=== PATIENT | male | born 1995 | race Caucasian/White ===

== ENCOUNTER 2019-02-28 08:27 | Emergency (ER) | payer MEDICAID ==
[~2019-02-28] VITALS: Ht 175.3 cm; Wt 61.4 kg
[~2019-02-28 08:27] MED LIST: IBUP-1985 PO
[2019-02-28 08:35] VITALS: BP 153/91
== END 2019-02-28 09:28 | disposition home or self-care (01) ==
LOC: ER 08:27
DX: R07.81 Pleurodynia (principal); F12.90 Cannabis use, unspecified, uncomplicated; Z79.899 Other long term (current) drug therapy
CPT/HCPCS: 99284

== ENCOUNTER 2020-10-25 19:53 | Emergency (ER) | payer MEDICAID ==
[~2020-10-25] VITALS: Ht 170.2 cm; Wt 63.6 kg
--- NOTE | 2020-10-25 20:20 | NUR ---
Contacted poison control, magaly beauchamp pt could experience anticholinergic delirium and recommends ekg to monitor qrs. Will notify EDP.
[2020-10-25 20:36] LABS: BASOPHILS % (AUTO) 0.4 % (0-1); EOSINOPHILS # (AUTO) 0.1 X10'3 (0-0.9); EOSINOPHILS % (AUTO) 0.7 % (0-6); HEMATOCRIT 40.4 % (42.0-52.0); HEMOGLOBIN 13.6 g/dl (14.0-17.9); LYMPHOCYTES # (AUTO) 1.4 X10'3 (1.1-4.8); LYMPHOCYTES % (AUTO) 18.2 % (21-51); MEAN CORPUSCULAR HEMOGLOBIN 30.6 PG (27.0-31.0); MEAN CORPUSCULAR HGB CONC 33.5 g/dL (33.0-36.5); MEAN CORPUSCULAR VOLUME 91.3 FL (78-98); MEAN PLATELET VOLUME 8.1 FL (7.4-10.4); MONOCYTES # (AUTO) 0.5 X10'3 (0-0.9); MONOCYTES % (AUTO) 5.7 % (2-12); NEUTROPHILS # (AUTO) 5.9 X10'3 (1.8-7.7); PLATELET COUNT 201 X10'3 (140-440); RED BLOOD COUNT 4.43 X10'6 (4.70-6.10); RED CELL DISTRIBUTION WIDTH 12.7 % (11.5-14.5); WHITE BLOOD COUNT 7.9 X10'3 (4.5-11.0)
[2020-10-25 20:50] LABS: ALANINE AMINOTRANSFERASE 23 U/L (12-78); ALBUMIN 4.2 G/DL (3.4-5.0); ALBUMIN/GLOBULIN RATIO 1.1 (1.1-1.5); ALKALINE PHOSPHATASE 57 IU/L (46-116); ANION GAP 14 (8-16); ASPARTATE AMINO TRANSFERASE 20 U/L (10-37); BILIRUBIN,TOTAL 0.3 MG/DL (0.1-1.0); BLOOD UREA NITROGEN 6 MG/DL (7-18); BUN/CREATININE RATIO 6.1 (5.4-32.0); CALCIUM 8.1 MG/DL (8.5-10.1); CHLORIDE 108 MMOL/L (99-107); CREATININE 0.98 MG/DL (0.60-1.10); ETHANOL 0.076 GM/DL (0.0-0.010); GLUCOSE 92 MG/DL (70-104); POTASSIUM 3.3 MMOL/L (3.5-5.1); SODIUM 146 MMOL/L (135-145); TOTAL CARBON DIOXIDE 24.2 MMOL/L (24-32); TOTAL PROTEIN 7.9 G/DL (6.4-8.2); eGFR > 90 ML/MIN
[2020-10-25 20:53] LABS: ACETAMINOPHEN < 2.0 UG/ML (10-30)
[2020-10-25] MEDS ORDERED: normal saline 1000ML IV soln IVB ONE (20:55)
[2020-10-25 21:16] LABS: URINE AMPHETAMINE SCREEN NEGATIVE (Neg); URINE BARBITUATE SCREEN NEGATIVE (Neg); URINE BENZODIAZEPINES SCREEN NEGATIVE (Neg); URINE CANNABINOID SCREEN POSITIVE (Neg); URINE COCAINE SCREEN NEGATIVE (Neg); URINE METHADONE SCREEN NEGATIVE (Neg); URINE OPIATE SCREEN NEGATIVE (Neg); URINE PHENCYCLIDINE SCREEN NEGATIVE (Neg)
--- NOTE | 2020-10-25 21:34 | NUR ---
ASSUMING CARE OF PT FROM TIMUR SEGURA. PT IS UNABLE TO FOLLOW DIRECTIONS AND IS SOMEWHAT REDIRECTABLE. STATES HE NEEDS TO PEE. ASSISTED TO STAND, UNSTEADY GAIT BUT IS MOVING AROUND ROOM WITH SBA, HOWEVER HE IS A FALL RISK. OFFERED URIINAL AND UNABLE TO USE IS TRYING STATING HE WILL "USE THIS" POINTING TO THE LAUNDRY BIN. HE IS TALKING BIZZARE AND NOT MAKING SENSE. SECURITY AND MALE CONTAINER CRANE OPERATOR AT BEDSIDE TO ASSIST PT INTO HIS GREEN SCRUBS. NOW SITTING ON THE BED.
--- NOTE | 2020-10-25 22:00 | NUR ---
Security in hallway for safety
--- NOTE | 2020-10-25 22:42 | NUR ---
DR. SHER AT BEDSIDE EARLIER WHEN PT BECOMMING UNDIRECTABLE AND TRYING TO GET OOB REGULARLY AND HR 130. SHE REPROTS SHE DOES NOT WANT TO CHEMICALLY RESTRAIN HIM AT THIS TIME AND THAT SHE WANT A SITTER AND NOT TO RESTRAIN HIM YET. PT HAS BEEN ABLE TO KEEP IN HIS BED WITH SECURITY AND RN AT BEDSIDE AAT REMINDING HIM.
--- NOTE | 2020-10-25 23:04 | NUR ---
PTS SISTER, SHIRA HERNODN, , CALLED TO GIVE AN UPDATE ON THE EVENTS THAT HAVE HAPPENED TODAY. HE HAD SENT TEXTS THAT SUGGESTED TO HER THAT "HE DOES NOT WANT TO BE ALIVE ANYMORE". SHE STATES HE WAS REACHING OUT FOR HELP. STATES SHE SUSPECTES HE HAS SOME MENTAL HEALTH PROBLEMS AND DEPRESSION AND ANGER ISSUES THAT HAVE BEEN UNDIAGNOSED. PT WITH NO DIAGNOSIS OF MENTAL HEALTH PROBLEMS. HE USES MARAJUANA AND HAS TAKEN ACID IN THE PAST. HE HAS BEEN HOSPITALIZED FOR A SEIZURE IN THE PAST, BUT STATES SHE REPROTED TO HER HE HAS HAD A FEW SEIZURE EPISODES BUT IS NOT DIAGNOSED OR TAKING MEDS FOR THIS. SHE REPORTS SHE IS VERY CLOSE WITH HIM. SHE REPORTS THERE IS AN "EX [facility] IS[facility]RO" ON HIS EMERGENCY CONTACT LIST BUT THEY ARE NO LONGER A COUPLE AND SHE HAS ISSUES WITH DRUGS. SHE STATES WE ARE WELCOME TO CALL HER FOR ANY INFORMATION AND THAT SHE WILL TRY TO CALL PT IN THE AM.
--- NOTE | 2020-10-26 02:18 | NUR ---
Hunter BRITT AT BEDSIDE TAKING WITH PT. PT REPORTS HE DID NOT TAKE THE BENEDRYL. PT REMAINS CONFUSED AND UNABLE TO CARRY ON AN APPROPRIATE CONVERSATION. CURRENTLY ON THE GURNEY WITH HOB AT 60 DEGREES. PT WILL NOT KEEP THE CARDIAC LEADS ON OR THE BP OR SAT MONITOR ON. DR. BRITT AWARE. REPORTS THE REPEAT EKG LOOKED FINE.
--- NOTE | 2020-10-26 02:38 | NUR ---
Pt up and ambulating in room with steady gait. Reports need to go to BR. Charlton back into room " have to grab my wallet". Reoriented to why he is here. I asked why he took the benedryl and how long ago. He states I did not take any and then "i dont really want to talk about that with you".
--- NOTE | 2020-10-26 03:32 | NUR ---
Removed his IV as he had it nearly all the way out.
[2020-10-26] MEDS ORDERED: LORazepam 1 MG tablet PO ONE (04:00)
--- NOTE | 2020-10-26 04:01 | NUR ---
Informed that the pt is getting out of his room looking for his clothes. made aware. Pt has not slept at all yet. will order some po ativan.
--- NOTE | 2020-10-26 04:43 | NUR ---
Pt did not want the ativan tablet. Brought jello, crackers and juice to bedside. Pt reports he is not hungry. Food left at bedside. Pt is A&Ox4 and cooperative and appropriate in his conversation. I asked if he recalls the event yesterday. He reports he remembers it all, but cannot tell me specifically. Updated that he is here on a hold for concern about a suicide attempt. States he does not want to harm himself. Given a pillow and warm blanket. Updated that he will be seeing [facility] today. Pt denies any hx of mental health.
--- NOTE | 2020-10-26 05:06 | NUR ---
Pt providinig me this contact information: States ok to given infor to all below. States primary contact would be his brother SUZY. Girlfriend, Yina Cyrmaribel [phone] brother "MaliMali" Perry Hammond [phone] Sister Priti [phone]
--- NOTE | 2020-10-26 06:36 | NUR ---
Patient on bed awake,no reported discomfort.We will monitor.
--- NOTE | 2020-10-26 07:56 | NUR ---
patient moved to overflow.Able to ambulate without difficulty.
[2020-10-26] MEDS ORDERED: NO HOME MEDS (09:13)
--- NOTE | 2020-10-26 09:22 | NUR ---
Pt brought to ED overflow in a cooperative mood but states "I'm really anxious and upset that I am here." Pt has no recollection of the events that brought him into the ED, and states that he has no diagnosed mh hx, or suicide attempts but that he has felt suicidal feelngs "in the past". Pt currently denies SI and Depression but endorses anxiety 07/05 r/t "being in the hospital". Pt affect is constricted and he is guarded. Pt states he thinks he took 5 benedryl last night and that he usually takes 3 to help him sleep. He states he has had sleeping difficulties for a couple years. He declines a PRN for anxiety and is not wanting to eat breakfast. Pt states he has normal stressors in life related to his job and gf but nothing "out of the ordinary". This RN reviewed the pt chart and found a note regarding the pt sister calling in and stating he has been texting her and she feels it is suggestive of depression or potential SI. When this RN relayed this to the pt, he nodded but did not elaborate, and remained guarded and dismissive of the information. Pt inquired as to MH hold process; this RN updated and pt verbalzied understanding. Addendum: 10/26/20 at 1034 by MARIA DE JESUS Poison control called for pt update and closed his case based on current vitals and physical assessment.
[2020-10-26] MEDS: LORazepam 1 MG tablet PO PRN ×2 (11:52→17:10)
--- NOTE | 2020-10-26 12:00 | NUR ---
Pt axiety remains high at 9/10 and accepted offer of oral PRN medication. Pt looks tense, and is restelss in bed. His sister called, and pt was grateful to hear [facility] family as he awaits evaluation.
--- NOTE | 2020-10-26 12:15 | NUR ---
Pt called tech over, slightly agitated, wanting us to check on his "wallet on the corner of the nurses station." He said it had been there for 20 minutes, and it's not okay. Reality oriented pt that his wallet was not on the desk. Inquired after AH and VH but pt stated "I do not see or hear things that are not there." Pt then became short in answers and not wanting to elaborate. This RN checked on anxiety and pt states "I am starting to feel less anxious, thanks."
--- NOTE | 2020-10-26 14:42 | NUR ---
[facility] evaluating pt
--- NOTE | 2020-10-26 15:16 | NUR ---
GF called but pt declined the phone call. Pts sister called for an update regarding whether he had been evaluated yet.
--- NOTE | 2020-10-26 15:58 | NUR ---
Pt talking loudly; RN approached to see if he needed anything and pt states 'No I was just talking to the lady tying her shoe." This RN relays that there is not a woman tying her shoe; pt is at first adamant then quiets. This RN asks if he has experienced VH before and he states "No, never." He states that this is making his anxiety worse, and he doesn't like the fact that he can't call whoever he wants because it's a public line." RN states the the phone is available if he wishes to contact family or his gf. Hia attitude remains dismissive, and he continues to downplay last nights events. RN encourages pt to share if he feels he is experiencing a VH. Will continue to monitor pt behavior. This information was relayed to [facility].
--- NOTE | 2020-10-26 16:03 | NUR ---
Pt placed on a 5150.
--- NOTE | 2020-10-26 16:09 | NUR ---
Pt irritated that he was placed on a hold as he feels it is a waste "of time and tax payers money." He apologized for his irritation, stated it is related to his anxiety increasing since being placed on a hold. This RN explained the process for placement and pt had no additional questions at this time. He wished to be left alone to process being put on a hold. This RN alerted pt she would update his sister regarding his status per his sister's request and pt okayed.
[2020-10-26 17:51] VITALS: BP 138/82
--- NOTE | 2020-10-26 18:15 | NUR ---
Pt states anxiety now a 2-3/ since Ativan adminstration, says "can think a little more clearly without all the jumbled thoughts [from anxiety]". Pt not wanting to eat dinner at this time, ate a little bit of lunch and no breakfast. Sister brought in some belongings, they are to be inventoried by incoming Tech. Pt given 3 of his books at bedside.
--- NOTE | 2020-10-26 19:29 | NUR ---
Pt sitting up in bed. Pt asked if he was seeing something as he was staring across nurse's station. Pt replied that he was not seeing anything out of the ordinary at this moment.
--- NOTE | 2020-10-26 19:41 | NUR ---
Client to be admitted to [facility] for SA/SI per JIMENA Santoro. RM [id number].
[2020-10-27] MEDS ORDERED: ESCI10TA61 PO (20:27)
[2020-10-27] MEDS ORDERED: TRAZ-251 PO (20:27)
== END 2020-10-26 21:09 | disposition home or self-care (01) ==
LOC: ER 19:54
DX: R41.0 Disorientation, unspecified (principal); T45.0X1A Poisoning by antiallergic and antiemetic drugs, accidental (unintentional), initial encounter; R45.1 Restlessness and agitation; F12.90 Cannabis use, unspecified, uncomplicated; Z79.899 Other long term (current) drug therapy; Y92.89 Other specified places as the place of occurrence of the external cause
CPT/HCPCS: 36415; 80053; 80305; 80320; 80329; 85025; 93005; 96360; 96361; 99285; J7030

== ENCOUNTER 2020-10-26 20:15 | Inpatient (IN) | payer MEDICAID ==
[~2020-10-26] VITALS: Ht 182.9 cm; Wt 66.0 kg
[~2020-10-26 20:15] MED LIST changes: +NO HOME MEDS
[2020-10-26] MEDS ORDERED: acetaminophen 325mg tablet PO PRN ×2 (21:30)
[2020-10-26] MEDS ORDERED: mag hydrox/Alum hydrox/simeth 30ml oral suspension PO PRN (21:30)
[2020-10-26] MEDS ORDERED: traZODone 50mg tablet PO PRN (21:30)
[2020-10-26] MEDS ORDERED: loperamide 2mg capsule PO PRN (21:30)
[2020-10-26] MEDS ORDERED: magnesium hydroxide 30ml (MOM) UD suspension PO PRN (21:30)
[2020-10-26] MEDS ORDERED: NICOTINE POLACRILEX 2 MG LOZENGE BC PRN (21:30)
[2020-10-26] MEDS ORDERED: ibuprofen 200mg tablet PO PRN (22:50)
[2020-10-26 22:53] VITALS: BP 143/97
--- NOTE | 2020-10-27 01:48 | NUR ---
CODING MANAGER NOTE: LEGAL HOLD: 5150 for DTS. REASON FOR ADMIT: Client took (extra) sleeping meds while drinking ETOH. Client became lethargic and confused. During this time he texted his parents, who were concerned this was a suicide attempt. Clients girlfriend called EMS and client was transported to the Hospital. Client was hallucinating when he arrived at the ED. Client was confused and unable to answer questions appropriately. [facility] determined client was a DTS and placed him on a 5150. THIS SHIFT: Client arrived on the unit at 21:30, AO X 4. Client stated the admission was "a waste of taxpayers time and money". Client feels it was a misunderstanding and he was not attempting suicide. Denies mental health history. Client was pleasant and cooperative. He is concerned about being able to return to work in "three days". Client has no HS meds. Tevin Patel inventoried clients belongings. Skin assessment was done by Althea Dean RN and Renetta Hoyt LVN. Client accepted Involuntary Advisement.
[2020-10-27 07:46] VITALS: BP 123/81
[2020-10-27] MEDS ORDERED: nicotine 21mg patch - 24 hr TD SCH (08:00)
[2020-10-27] MEDS: LORazepam 1 MG tablet PO PRN ×2 (09:44→17:07)
[2020-10-27 12:49] LABS: HEMOGLOBIN A1C 5.3 % (4.5-6.2)
[2020-10-27 12:55] LABS: CHOLESTEROL 185 MG/DL (0-200); HDL CHOLESTEROL 61 MG/DL (35-60); LDL CHOLESTEROL 111 MG/DL (50-100); TRIGLYCERIDES 67 MG/DL (20-135)
[2020-10-27 15:27] LABS: ALBUMIN 4.4 G/DL (3.4-5.0); ANION GAP 10 (8-16); BLOOD UREA NITROGEN 12 MG/DL (7-18); BUN/CREATININE RATIO 11.4 (5.4-32.0); CALCIUM 9.2 MG/DL (8.5-10.1); CHLORIDE 103 MMOL/L (99-107); CREATININE 1.05 MG/DL (0.60-1.10); GLUCOSE 97 MG/DL (70-104); POTASSIUM 4.2 MMOL/L (3.5-5.1); SODIUM 138 MMOL/L (135-145); TOTAL CARBON DIOXIDE 25.1 MMOL/L (24-32); eGFR 85 ML/MIN
--- NOTE | 2020-10-27 17:42 | NUR ---
Nursing Progress Note Legal hold: 5150 for DTS Received report from Leidy Madera RN with use of SBAR. Why are they here: PT admitted to [place] for [facility]al health 10/19/2020 at 1708 on a 5150 for DTS. Pt states being suicidal "Tired of everything". Pt having financial difficulties, homelessness. Pt got off a bus from [place] and headed straight to the [facility]. Pt has history of depression. Assessment Received Pt sleeping in his room at change of shift. Pt. awake for breakfast and received nicotine patch. Pt. ate all meals in the community. 1:1 done at bedside, pt. reports feeling anxious, but denies SI/HI, A/V hallucinations. Pt. informed RN that he was hospitalized for drinking 6 beers and taking "some" Unisom sleep aids on . Pt. reports he took the Unisom because he has trouble sleeping and needed to get rest before driving his GF to work the next morning. Pt. reports that his life is not too stressful, that he has some relational stress from his GF, but enjoys his work and is in the process of buying a house. Pt. received Ativan 1mg po for anxiety with good effect. In the evening pt. requested another Ativan 1mg for anxiety and received with good effect. S/I, H/I: Pt denies A/VH: Denies Sleep: Napped intermittently ADL's: Independent Group attendance: No groups today Were meds taken: NA Any med S/E: NA Mental Status Exam Appearance: Clean and neat young man with pierced ears and chin wearing clean street clothes. Eye contact: Good Behavior: Cooperative, isolates to room most of the day and naps. Speech: WNL Mood: Anxious Affect: Congruent with mood. Thought process: Organized Thought Content: Feels hospitlization is not needed. Cognition: A/O x 4 Insight: Fair Judgment: Fair Interventions PRN's used: Ativan 1mg x2. Therapeutic interventions: 1:1 assessment, therapeutic communication, active listening, medication administration/education/monitoring, ensured contract for safety, limit setting and redirection, Q 15 minute safety checks. Restraints/seclusion/emergency medication: None Justification of Continued Inpatient Treatment: Pt. requires interruption of current crisis, medication adjustments, and a safe and supportive environment.
--- NOTE | 2020-10-27 18:16 | NUR ---
[facility] Nursing Progress Note Legal hold: 5150 for DTS Received report from Leidy Madera RN with use of SBAR. REASON FOR ADMIT: Client took (extra) sleeping meds while drinking ETOH. Client became lethargic and confused. During this time he texted his parents, who were concerned this was a suicide attempt. Clients girlfriend called EMS and client was transported to the Hospital. Client was hallucinating when he arrived at the ED. Client was confused and unable to answer questions appropriately. [facility] determined client was a DTS and placed him on a 5150. Assessment Received Pt sleeping in his room at change of shift. Pt. awake for breakfast and received nicotine patch. Pt. ate all meals in the community. 1:1 done at bedside, pt. reports feeling anxious, but denies SI/HI, A/V hallucinations. Pt. informed RN that he was hospitalized for drinking 6 beers and taking "some" Unisom sleep aids on . Pt. reports he took the Unisom because he has trouble sleeping and needed to get rest before driving his GF to work the next morning. Pt. reports that his life is not too stressful, that he has some relational stress from his GF, but enjoys his work and is in the process of buying a house. Pt. received Ativan 1mg po for anxiety with good effect. In the evening pt. received ativan 1mg po again for anxiety with good effect. S/I, H/I: Pt denies A/VH: Denies Sleep: Napped intermittently ADL's: Independent Group attendance: No groups today Were meds taken: NA Any med S/E: NA Mental Status Exam Appearance: Clean and neat young man with pierced ears and chin wearing clean street clothes. Eye contact: Good Behavior: Cooperative, isolates to room most of the day and naps. Speech: WNL Mood: Anxious Affect: Congruent with mood. Thought process: Organized Thought Content: Feels hospitlization is not needed. Cognition: A/O x 4 Insight: Fair Judgment: Fair Interventions PRN's used: Ativan 1mg x2. Therapeutic interventions: 1:1 assessment, therapeutic communication, active listening, medication administration/education/monitoring, ensured contract for safety, limit setting and redirection, Q 15 minute safety checks. Restraints/seclusion/emergency medication: None Justification of Continued Inpatient Treatment: Pt. requires interruption of current crisis, medication adjustments, and a safe and supportive environment.
[2020-10-27] MEDS ORDERED: ESCI10TA61 PO (20:27)
[2020-10-27] MEDS ORDERED: TRAZ-251 PO (20:27)
--- NOTE | 2020-10-27 21:26 | NUR ---
Pt discharged @ 2114 escorted with his belongings to the waiting room . Pt picked up by sister . Pt given discharge packet with copies of d/c papers.
[2020-10-28] MEDS ORDERED: ESCITALOPRAM OXALATE 5 MG TABLET PO SCH (08:00)
== END 2020-10-27 21:20 | disposition home or self-care (01) | DRG 756 ==
LOC: ADULT MH 21:16
PROVIDERS: ADMIT Psychiatry & Neurology Psychiatry; ATTEND Psychiatry & Neurology Psychiatry
DX: F41.9 Anxiety disorder, unspecified (principal); R41.0 Disorientation, unspecified; F12.90 Cannabis use, unspecified, uncomplicated; T45.0X2A Poisoning by antiallergic and antiemetic drugs, intentional self-harm, initial encounter; Y92.89 Other specified places as the place of occurrence of the external cause
CPT/HCPCS: 36415; 80048; 80061; 83036; 87081